=== PATIENT | female | born 1985 | race Caucasian/White ===

== ENCOUNTER 2021-04-01 11:26 | Emergency (ER) | payer MEDICAID, OTHER ==
--- NOTE | 2021-04-01 12:23 | EDM.PDOC ---
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 The pain is cramping,7/10, denies having fever/chills or any foul smelling vaginal discharge. Abdomen Pain Score (Numeric/FACES): 5 - Related Data Allergies Allergy/AdvReac Type Severity Reaction Status Date / Time No Known Allergies Allergy Verified 04/01/21 11:44 Home Meds: Home Meds NK [No Known Home Meds] 04/01/21 [History] Past Medical History - Past Health History Medical/Surgical History: Denies Medical/Surgical History Social & Family History - Family History Family Medical History: No Pertinent Family History - Tobacco Use Tobacco Use Status *Q: Never Tobacco User - Caffeine Use Caffeine Use: Reports: None - Recreational Drug Use Recreational Drug Use: No ED ROS GENERAL - Review of Systems Review Of Systems: See Below Constitutional: Reports: No Symptoms HEENT: Reports: No Symptoms Respiratory: Reports: No Symptoms Cardiovascular: Reports: No Symptoms Endocrine: Reports: No Symptoms GI/Abdominal: Reports: No Symptoms : Reports: Other (pelvic pain) Musculoskeletal: Reports: No Symptoms Skin: Reports: No Symptoms Neurological: Reports: No Symptoms Psychiatric: Reports: No Symptoms ED EXAM, GENERAL - Physical Exam Exam: See Below Exam Limited By: No Limitations General Appearance: Alert, No Apparent Distress Ears: Normal External Exam, Normal Canal, Hearing Grossly Normal Nose: Normal Inspection, Normal Mucosa, No Blood Throat/Mouth: Normal Inspection, Normal Lips, Normal Teeth Head: Atraumatic, Normocephalic Neck: Normal Inspection, Supple, Non-Tender, Full Range of Motion Respiratory/Chest: No Respiratory Distress, Lungs Clear, Normal Breath Sounds Cardiovascular: Normal Peripheral Pulses, Regular Rate, Rhythm, No Edema, No Gallop GI/Abdominal: Normal Bowel Sounds, Soft, Non-Tender, Other (suprapubic tenderness) Course - Vital Signs Text/Narrative:: UA-negative Last Recorded V/S: Last Vital Signs Temp 37.3 C 04/01/21 11:27 Pulse 75 04/01/21 11:27 Resp 18 04/01/21 11:27 BP 111/79 04/01/21 11:27 Pulse Ox 100 04/01/21 11:27 - Orders/Labs/Meds Labs: Laboratory Tests 04/01/21 Range/Units 11:48 Urine Color Yellow (YELLOW) Urine Appearance Clear (CLEAR) Urine pH 6.5 (5.0-6.5) Ur Specific [place] 1.010 (1.010-1.025) Urine Protein Negative (NEGATIVE) mg/dL Urine Glucose (UA) Normal (NORMAL) mg/dL Urine Ketones Negative (NEGATIVE) mg/dL Urine Occult Blood Negative (NEGATIVE) Urine Nitrite Negative (NEGATIVE) Urine Bilirubin Negative (NEGATIVE) Urine Urobilinogen Normal (NEGATIVE) mg/dL Ur Leukocyte Esterase Negative (NEGATIVE) Urine RBC 0-5 (0-5) Urine WBC 0-5 (0-5) Ur Squamous Epith Cells Rare (NS,R,O) Urine Bacteria Few H (NS) Departure - Departure Time of Disposition: 12:35 Disposition: Home, Self-Care 01 Condition: Good Clinical Impression: Pelvic pain - Discharge Information Instructions: Pelvic Pain, Female, [id number] Referrals: PCP,None [Primary Care Provider] - Forms: ED Department Discharge Additional Instructions: Please read discharge instructions on pelvic pain Your urine test is negative, that means you don't have a bladder infection You have an appointment with a Refinisher at [facility] (located at [place], [place]) on Wednesday04/08/21 @ 9:30 AM . Call#[phone] if you have questions. Keep this appointment because it's hard to schedule specialist clinic visits. Take ibuprofen 800 mg with tylenol 1000 mg every 8 hours as needed for pain Sepsis Event Note (ED) - Evaluation Sepsis Screening Result: No Definite Risk - Focused Exam Vital Signs: Vital Signs Temp Pulse Resp BP Pulse Ox 04/01/21 11:27 37.3 C 75 18 111/79 100
== END 2021-04-01 12:40 | disposition home or self-care (01) ==
LOC: FB.ED 11:26
DX: R10.2 Pelvic and perineal pain (principal)
CPT/HCPCS: 81001; 99282; 99284

== ENCOUNTER 2023-01-29 01:32 | Emergency (ER) | payer MEDICAID ==
[2023-01-29] MEDS ORDERED: Acetaminophen 500 MG Tab PO ONE (02:35)
== END 2023-01-29 02:44 | disposition home or self-care (01) ==
LOC: FB.ED 01:32
DX: S22.31XA Fracture of one rib, right side, initial encounter for closed fracture (principal); W18.09XA Striking against other object with subsequent fall, initial encounter
CPT/HCPCS: 71101; 99283; A9270; 99282